=== PATIENT | female | born 1990 | race Caucasian/White ===

== ENCOUNTER 2018-01-06 12:26 | Emergency (ER) | payer SELFPAY ==
--- NOTE | 2018-01-06 13:54 | EDM.PDOC ---
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 Time Seen by Provider: 01/06/18 13:00 Source of Information: Reports: Patient History Limitations: Reports: No Limitations - History of Present Illness INITIAL COMMENTS - FREE TEXT/NARRATIVE: c/o blisters with sharp pain in perineal and perianal area x 4d blisters spreading, drain clear fluid, new, no prior STD living locally with father x last 2m, working lives in [place], and getting divorce, only partner x 1y is , last sexual contact 1w ago, intravaginal, no anal sex LMP 1w ago, nl flow Perineium Pain Score (Numeric/FACES): 6 - Related Data Allergies Allergy/AdvReac Type Severity Reaction Status Date / Time No Known Allergies Allergy Verified 01/06/18 12:33 Home Meds: Home Meds Acyclovir 400 mg PO TID #28 tablet 01/06/18 [Rx] Past Medical History Genitourinary History: Reports: None Neurological History: Reports: Migraines Psychiatric History: Reports: Anxiety, Depression, Suicide Attempt Oncologic (Cancer) History: Reports: Cervix - Infectious Disease History Infectious Disease History: Reports: Chicken Pox - Past Surgical History Female Surgical History: Reports: LEEP Other Female Surgeries/Procedures: LEEP for cervical CA Social & Family History - Family History Family Medical History: Noncontributory - Tobacco Use Smoking Status *Q: Current Every Day Smoker Years of Tobacco use: 15 Packs/Tins Daily: 0.5 - Caffeine Use Caffeine Use: Reports: Coffee, Soda - Recreational Drug Use Recreational Drug Use: Yes Recreational Drug Type: Reports: Marijuana/Hashish ED ROS GENERAL - Review of Systems Review Of Systems: See Below Constitutional: Reports: No Symptoms HEENT: Reports: No Symptoms Respiratory: Reports: No Symptoms Cardiovascular: Reports: No Symptoms Endocrine: Reports: No Symptoms GI/Abdominal: Reports: No Symptoms : Reports: Other (no freq, no dysuria, no vag d/c, no vag pain, perineal and perianal blisters and pain) Musculoskeletal: Reports: No Symptoms Skin: Reports: No Symptoms Neurological: Reports: No Symptoms Psychiatric: Reports: No Symptoms Hematologic/Lymphatic: Reports: No Symptoms Immunologic: Reports: No Symptoms ED EXAM, RENAL/ - Physical Exam Exam: See Below Exam Limited By: No Limitations General Appearance: Alert, WD/WN, No Apparent Distress Throat/Mouth: Normal Inspection, Normal Lips, Normal Voice, No Airway Compromise Neck: Normal Inspection, Supple, Non-Tender, Full Range of Motion Respiratory/Chest: No Respiratory Distress Cardiovascular: Regular Rate, Rhythm (Female) Exam: Other (multiple scattered blisters on skin (not mucosa) in perineal and perianal area and inner aspects of buttock, no true clusters altho present in greater concentration in midline c/w inc'd spread from friction, most are old, 4 mm across with flat tops on umbilicated ulcer bases, no red to skin except a little a base of ulcer, 2 blisters near midline were ruptured with #25 needle and HSV swab obtained, no pus, vag wnl, a few drops of reyna liquid secretions at os, inflammed ectropion noted out 1 cm with prominent inflammed vessels without vesicles altho vesicles could not be excluded, no CMT , uterus NSSC without inc'd tender, ovaries wnl b/l without inc'd tender or mass ) Lymphatic: No Adenopathy Course - Vital Signs Last Recorded V/S: Last Vital Signs Temp 36.7 C 01/06/18 12:30 Pulse 88 01/06/18 12:30 Resp 18 01/06/18 12:30 BP 125/77 01/06/18 12:30 Pulse Ox 100 01/06/18 12:30 - Orders/Labs/Meds Orders: Active Orders 24 hr Category Date Time Status CHLAMYDIA,AND GC BY APTIMA Stat Lab 01/06/18 13:41 Received HIV 1/2 AB RFLX TO SUPPL [REF] Stat Lab 01/06/18 14:40 Received HSV 1&2,DET&DIFF REALTIME PCR [REF] Stat Lab 01/06/18 13:40 Received RPR-TREP PALLIDIUM AB,REFLEX [REF] Stat Lab 01/06/18 14:40 Received Labs: Laboratory Tests 01/06/18 Range/Units 12:55 Urine Color Yellow (YELLOW) Urine Appearance Clear (CLEAR) Urine pH 5.0 (5.0-6.5) Ur Specific [place] 1.015 (1.010-1.025) Urine Protein Negative (NEGATIVE) mg/dL Urine Glucose (UA) Normal (NEGATIVE) mg/dL Urine Ketones Negative (NEGATIVE) mg/dL Urine Occult Blood Moderate H (NEGATIVE) Urine Nitrite Negative (NEGATIVE) Urine Bilirubin Small H (NEGATIVE) Urine Urobilinogen 1 H (NEGATIVE) mg/dL Ur Leukocyte Esterase Large H (NEGATIVE) Urine RBC 0-5 (0) Urine WBC 5-10 (0) Ur Squamous Epith Cells Occasional (NS,R,O) Urine Bacteria Few H (NS) Urine Mucus Few H (NS) - Re-Assessments/Exams Free Text/Narrative Re-Assessment/Exam: 01/06/18 15:37 only moderate WBC seen on wet prep c/w HSV cervicitis as seen on exam, no clinical evidence of PID will tx for presumed HSV 2 of cx and skin pt plans for f/u with [facility] Departure - Departure Time of Disposition: 15:38 Disposition: Home, Self-Care 01 Condition: Good 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 Avoid scratching. May use lotion or cream or vasoline several times a day as needed to reduce friction. Clean gently with a clean cloth daily. Avoid soaps and excessive cleaning or rubbing. See your doctor in 3-4 days. Return to ED if you feel worse or develop new symptoms. - My Orders Last 24 Hours: My Active Orders 01/06/18 13:40 HSV 1&2,DET&DIFF REALTIME PCR [REF] Stat 01/06/18 13:41 CHLAMYDIA,AND GC BY APTIMA Stat 01/06/18 14:40 HIV 1/2 AB RFLX TO SUPPL [REF] Stat RPR-TREP PALLIDIUM AB,REFLEX [REF] Stat - Assessment/Plan Last 24 Hours: My Active Orders 01/06/18 13:40 HSV 1&2,DET&DIFF REALTIME PCR [REF] Stat 01/06/18 13:41 CHLAMYDIA,AND GC BY APTIMA Stat 01/06/18 14:40 HIV 1/2 AB RFLX TO SUPPL [REF] Stat RPR-TREP PALLIDIUM AB,REFLEX [REF] Stat
[2018-01-06] MEDS ORDERED: Acyclovir 400 MG Tab PO ONE ×2 (15:38→16:00)
== END 2018-01-06 16:15 | disposition home or self-care (01) ==
LOC: FB.ED 12:26
DX: A60.03 Herpesviral cervicitis (principal); F32.9 Major depressive disorder, single episode, unspecified; F41.9 Anxiety disorder, unspecified; F17.210 Nicotine dependence, cigarettes, uncomplicated
CPT/HCPCS: 81001; 86780; 87210; 87389; 87491; 87529; 87591; 99283; A9270; 36415

== ENCOUNTER 2020-04-08 11:48 | Emergency (ER) | payer OTHER ==
--- NOTE | 2020-04-08 12:24 | EDM.PDOC ---
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 There was no LOC or other reported injuries. Inspection reveals partial avulsion of the 3rd nail with nailbed laceratin, minimal active bleeding, and tenderness with some swelling of the digits distally. She is and due in a couple of weeks. - Related Data Allergies Allergy/AdvReac Type Severity Reaction Status Date / Time No Known Allergies Allergy Verified 04/08/20 12:38 Home Meds: Home Meds hydrOXYzine pamoate [Vistaril] 25 mg PO BEDTIME 04/08/20 [History] Past Medical History Genitourinary History: Reports: None Neurological History: Reports: Migraines Psychiatric History: Reports: Anxiety, Depression, Suicide Attempt Oncologic (Cancer) History: Reports: Cervix - Infectious Disease History Infectious Disease History: Reports: Chicken Pox - Past Surgical History Female Surgical History: Reports: LEEP Other Female Surgeries/Procedures: LEEP for cervical CA Social & Family History - Family History Family Medical History: Noncontributory - Caffeine Use Caffeine Use: Reports: Coffee, Soda Review of Systems - Review of Systems Review Of Systems: Comprehensive ROS is negative, except as noted in HPI. ED EXAM, GENERAL - Physical Exam Exam: See Below General Appearance: Alert, WD/WN, Mild Distress Head: Atraumatic, Normocephalic Neck: Normal Inspection, Supple, Non-Tender Respiratory/Chest: Lungs Clear Cardiovascular: Regular Rate, Rhythm Back Exam: Normal Inspection Extremities: Other (L hand: 2nd digit, small about of swelling distally with some dried blood; 3rd digit, partially avulsed nail with nailbed laceration, moderate swelling of distal phalanx; 4th digit, mild swelling and no sign of bleeding; FROM, CMS intact) Neurological: Alert, Oriented, CN II-XII Intact, No Motor/Sensory Deficits Psychiatric: Normal Affect, Normal Mood Skin Exam: Warm, Dry, Normal Color, Wound/Incision (nailbed L middle digit) Lymphatic: No Adenopathy ED TRAUMA EXTREMITY PROCEDURES - Laceration/Wound Repair Left Distal Digit - 3rd (Middle) Lac/Wound Length In cm: 0.6 Appearance: Subcutaneous, Stellate Distal NVT: Neuro & Vascular Intact Anesthetic Type: Local Local Anesthesia - Lidocaine (Xylocaine): 1% Plain Local Anesthetic Volume: 4cc Skin Prep: Chlorhexidine (Hibiciens) Exploration/Debridement/Repair: Wound Explored, No Foreign Material Found Closed With: Sutures Suture Size: 4-0 # of Sutures: 3 Suture Type: Other (vicryl) Sterile Dressing Applied: Nurse Tetanus Status Addressed: Yes Complications: No Course - Vital Signs Text/Narrative:: Patient tolerated procedure well. I reviewed x rays of L hand, confirming fx of distal 3rd phalanx extending into joint space and slightly offset. Tetanus vax status up to date. - Orders/Labs/Meds Orders: Active Orders 24 hr Category Date Time Status Fingers Multiple Lt [CR] Stat Exams 04/08/20 12:14 Ordered Departure - Departure Time of Disposition: 12:56 Disposition: Home, Self-Care 01 Condition: Fair Clinical Impression: Closed fracture of phalanx of finger of left hand Qualifiers: Encounter type: initial encounter Finger: middle finger Phalanx: distal Fracture alignment: displaced Qualified Code(s): S62.633A - Displaced fracture of distal phalanx of left middle finger, initial encounter for closed fracture Nailbed laceration, finger Qualifiers: Encounter type: initial encounter Qualified Code(s): S61.319A - Laceration without foreign body of unspecified finger with damage to nail, initial encounter - Discharge Information *PRESCRIPTION DRUG MONITORING PROGRAM REVIEWED*: Not Applicable *COPY OF PRESCRIPTION DRUG MONITORING REPORT IN PATIENT [place]: Not Applicable Referrals: Queta Manrique INTERNAL COMMUNICATIONS SPECIALIST [Primary Care Provider] - Forms: ED Department Discharge - Problem List & Annotations (1) Closed fracture of phalanx of finger of left hand SNOMED Code(s): 76535567, 435468067, [id number] Code(s): S62.609A - FRACTURE OF UNSP PHALANX OF UNSP FINGER, INIT FOR CLOS FX Status: Acute Current Visit: Yes Annotation/Comment:: Mildly displaced fx of distal left 3rd phalanx, follow up with PCP Qualifiers: Encounter type: initial encounter Finger: middle finger Phalanx: distal Fracture alignment: displaced Qualified Code(s): S62.633A - Displaced fracture of distal phalanx of left middle finger, initial encounter for closed fracture (2) Nailbed laceration, finger SNOMED Code(s): 219976385 Code(s): S61.319A - LACERATION W/O FB OF UNSP FINGER W DAMAGE TO NAIL, INIT Status: Acute Current Visit: Yes Annotation/Comment:: Nailbed laceration sutured with 4-0 vicryl interrupted, routine wound cares Qualifiers: Encounter type: initial encounter Qualified Code(s): S61.319A - Laceration without foreign body of unspecified finger with damage to nail, initial encounter - Problem List Review Problem List Initiated/Reviewed/Updated: Yes - My Orders Last 24 Hours: My Active Orders 04/08/20 12:14 Fingers Multiple Lt [CR] Stat - Assessment/Plan Last 24 Hours: My Active Orders 04/08/20 12:14 Fingers Multiple Lt [CR] Stat Plan: Follow up with PCP next week.
[2020-04-08] MEDS ORDERED: Acetaminophen Soln 650 MG/20.3 ML UD Cup PO ONE (12:50)
[2020-04-08] MEDS ORDERED: Acetaminophen 325 MG Tab PO ONE (12:56)
--- NOTE | 2020-04-08 17:31 | CR ---
INDICATION: Trauma LEFT FINGERS: Three views of the left fingers revealed an oblique fracture through the proximal metaphysis of the distal phalanx of the 3rd finger on the left. There is some minimal depression of the fracture segment and minimal distraction. On the oblique view, there appears to be a slight offset of approximately 2.5 to 3 mm. Adequate position and alignment is suggested, however. Absence of the nail is noted compatible with nail bed trauma. Soft tissue swelling of the finger is noted. No other bone or joint abnormality was identified. Report was given in person to Dr. Loco immediately after the examination was available. ARNOL
== END 2020-04-08 13:05 | disposition home or self-care (01) ==
LOC: FB.ED 11:48
DX: S62.633A Displaced fracture of distal phalanx of left middle finger, initial encounter for closed fracture (principal); S61.313A Laceration without foreign body of left middle finger with damage to nail, initial encounter; W23.0XXA Caught, crushed, jammed, or pinched between moving objects, initial encounter
CPT/HCPCS: 11760; 73140; 99000; 99283; A9270